=== PATIENT | female | born 1970 | race Caucasian/White ===

== ENCOUNTER → 2016-07-05 | Outpatient (REF) | payer OTHER | LOC: M SFHCWAGY 11:22 | PROVIDERS: ATTEND Nurse Practitioner Family | DX: N93.9 Abnormal uterine and vaginal bleeding, unspecified (principal); N84.0 Polyp of corpus uteri ==

== ENCOUNTER → 2016-07-19 | Day surgery (SDC) | payer OTHER ==
[~2016-07-19] VITALS: Ht 165.1 cm; Wt 88.9 kg
[~2016-07-19] MED LIST: BUPIVACAINE HCL 0.25% 30 ML VIAL As Ordered ONE; BUPIVACAINE HCL 0.25% 30 ML VIAL XX ONE; FLON1SPR; GLYCOPYRROLATE INJ 0.2 MG/ML 2 ML VIAL As Ordered ONE; KETOROLAC 60 MG/2 ML VIAL (J1885) As Ordered ONE; LIDOCAINE 2% INJ 100 MG/5 ML SDV (FOR ANES.) As Ordered ONE; LORA10TA2 PO; LR 1,000 ML IV SCH; MIDAZOLAM INJ 2 MG/2 ML VIAL (J2250) As Ordered ONE; NEOSTIGMINE 1MG/ML 5 ML SYRINGE (J2710) As Ordered ONE; ONDANSETRON 4MG/2ML VIAL (J2405) As Ordered ONE; ONDANSETRON 4MG/2ML VIAL (J2405) IV PRN; PERCOCET 5MG/325MG TAB PO PRN; PROPOFOL 200 MG/20 ML VIAL As Ordered ONE; ROCURONIUM BROMIDE 50 MG/5 ML VIAL As Ordered ONE; STOO100C PO; VITA500046 PO; dexameTHASONE 4 MG/ML 1ML VIAL (J1100) As Ordered ONE; fentaNYL 100 MCG/2 ML INJECTION (J3010) As Ordered ONE
[2016-07-19] MEDS: fentaNYL 100 MCG/2 ML INJECTION (J3010) IV PRN ×4 (11:09→11:24)
[2016-07-19 12:15] VITALS: BP 110/62
--- NOTE | 2016-07-19 23:51 | RO ---
DATE OF PROCEDURE: 07/19/2016 PREOPERATIVE DIAGNOSIS: Ventral incisional hernia. POSTOPERATIVE DIAGNOSIS: Ventral incisional hernia. PROCEDURE PERFORMED: Laparoscopic repair of ventral incisional hernia with Parietex mesh. The mesh utilized was reference number [id number] . SURGEON: Dr. Jose Pike TIRE DESIGN ENGINEER: JENNIFER Frazier ANESTHESIA: General. INDICATIONS FOR PROCEDURE: The patient is a 45-year-old woman who had undergone repair of an umbilical hernia 1-2 years ago. She recently noticed a recurrence of her hernia. She is now for repair of her ventral incisional hernia. DESCRIPTION OF PROCEDURE: The patient was placed under general anesthesia. The patient's abdomen was prepped and draped in a sterile fashion. 0.25% Marcaine was infiltrated at each of the trocar sites. A short incision was made in the lateral abdomen at the level of the umbilicus. A Veress needle was inserted and after positive hanging drop test, the abdomen was insufflated with carbon dioxide gas. A 5 mm Visiport was placed over the scope, and this was advanced through the abdominal wall without difficulty. Initial examination showed some adhesions of the omentum to the anterior abdominal wall beneath the umbilicus and in the area surrounding her previous hernia repair. A second 5 mm trocar was placed in the right upper quadrant. Hook cautery was used to dissect the adhesions from the anterior abdominal wall. Two fascial defects were identified and some omentum was reduced from within these defects. Hemostasis was ensured with the cautery. At this point, the abdomen was deflated and a roughly 4 cm incision was made on the right lateral aspect of the umbilicus through her old scar. The incision was deepened to the fascia. The patient was found to have two hernia defects. The larger one was approximately 2 cm and located beneath the umbilicus. A second smaller defect approximately a centimeter in size was found slightly to the right of the midline. The fascial edges were cleared of overlying fibrofatty tissue at both sites. A 9 cm Parietex patch, round, was then selected. A 0 Ethibond suture was placed in the midpoint of the larger fascial defect to approximate the defect and also catch a very small bite of the center of the patch. The patch was placed into the abdomen and the suture tied down. Additional sutures were then placed in both fascial defects to close them. The abdomen was then reinflated with carbon dioxide. Inspection showed that the mesh was nicely positioned over the defects. A SecureStrap tacking device was then used to tack the mesh securely to the anterior abdominal wall. Care was taken to tack down the periphery of the mesh with additional tacks within the more central portions. A total of 25 tacks were utilized. There was no bleeding noted. The patient's abdomen was then deflated and the two trocars were removed. The umbilical skin was tacked down to the fascia with a #3-0 Vicryl. Subcutaneous tissues were closed with #3-0 Vicryl and the skin edges in all three wounds were approximated with subcuticular sutures of #5-0 Vicryl. Steri-Strips were applied. I would note that 0.25% Marcaine was infiltrated around the midline incision as well. Sterile dressings were applied. The patient tolerated the procedure well. She was awakened in the operating room, extubated and moved to the recovery room in stable condition.
== END | disposition home or self-care (01) ==
LOC: M SDC 07:40
PROVIDERS: ATTEND Surgery
DX: K43.2 Incisional hernia without obstruction or gangrene (principal); K21.9 Gastro-esophageal reflux disease without esophagitis; G47.33 Obstructive sleep apnea (adult) (pediatric); R06.83 Snoring; J45.909 Unspecified asthma, uncomplicated; F17.290 Nicotine dependence, other tobacco product, uncomplicated; Z79.899 Other long term (current) drug therapy; Z91.040 Latex allergy status; Z98.51 Tubal ligation status
CPT/HCPCS: 49654; 88302; C1781; J1100; J1885; J2250; J2405; J2710; J3010

== ENCOUNTER → 2016-07-24 | Outpatient (REF) | payer OTHER ==
[~2016-07-24] MED LIST changes: -BUPIVACAINE HCL 0.25% 30 ML VIAL As Ordered ONE; -BUPIVACAINE HCL 0.25% 30 ML VIAL XX ONE; -GLYCOPYRROLATE INJ 0.2 MG/ML 2 ML VIAL As Ordered ONE; -KETOROLAC 60 MG/2 ML VIAL (J1885) As Ordered ONE; -LIDOCAINE 2% INJ 100 MG/5 ML SDV (FOR ANES.) As Ordered ONE; -LR 1,000 ML IV SCH; -MIDAZOLAM INJ 2 MG/2 ML VIAL (J2250) As Ordered ONE; -NEOSTIGMINE 1MG/ML 5 ML SYRINGE (J2710) As Ordered ONE; -ONDANSETRON 4MG/2ML VIAL (J2405) As Ordered ONE; -ONDANSETRON 4MG/2ML VIAL (J2405) IV PRN; -PERCOCET 5MG/325MG TAB PO PRN; -PROPOFOL 200 MG/20 ML VIAL As Ordered ONE; -ROCURONIUM BROMIDE 50 MG/5 ML VIAL As Ordered ONE; -dexameTHASONE 4 MG/ML 1ML VIAL (J1100) As Ordered ONE; -fentaNYL 100 MCG/2 ML INJECTION (J3010) As Ordered ONE
[2016-07-24 21:25] LABS: BASO # 0.2 K/mm3 (0.0-0.2); BASO % 1.3 % (0.0-1.0); EOS # 0.2 K/mm3 (0.0-0.50); LARGE UNSTAINED CELL # 0.2 K/mm3 (0.0-0.4); LARGE UNSTAINED CELL % 1.7 % (0.0-4.0); LYMPH # 2.9 K/mm3 (1.5-4.5); LYMPH % 23.4 % (24.0-44.0); MEAN CORPUSCULAR HEMOGLOBIN 31.6 pg (27.0-33.0); MEAN CORPUSCULAR HGB CONC 32.7 g/dl (32.0-36.5); MEAN CORPUSCULAR VOLUME 96.7 fl (80.0-96.0); MONO # 0.5 K/mm3 (0.0-0.8); MONO % 4.7 % (0.0-5.0); NEUTROPHILS # 7.7 K/mm3 (1.8-7.7); NEUTROPHILS % 66.8 % (36.0-66.0); PLATELET COUNT, AUTOMATED 220 k/mm3 (150-450); RED CELL DISTRIBUTION WIDTH 13.5 % (11.5-14.5); WHITE BLOOD COUNT 11.4 K/mm3 (4.0-10.0)
[2016-07-24 21:50] LABS: ERYTHROCYTE SEDIMENTATION RATE 41 mm/hr (0-20)
== END ==
LOC: M SFHCADAM 11:54
PROVIDERS: ATTEND Physician Assistant Medical
DX: M25.512 Pain in left shoulder (principal); M25.562 Pain in left knee; M25.532 Pain in left wrist

== ENCOUNTER → 2016-07-30 | Outpatient (CLI) | payer OTHER ==
--- NOTE | 2016-07-30 18:39 | REP ---
AP LATERAL LEFT KNEE: 07/30/2016. CLINICAL HISTORY: Left knee pain. No prior study. FINDINGS: No prior study. Two-views show spurs, tibial spines, medial greater than lateral joint margins, and patellofemoral margin. There is a spur at the insertion of the quadriceps tendon on the upper pole of patella. There is no suprapatellar effusion, fracture, loose body, or osteochondral defect. No evidence of avulsion or focal bone lesion. IMPRESSION: 1. Mild tricompartment osteoarthritis without joint effusion, fracture, loose body, osteochondral defect, or other acute finding. Signed by Gene Arenas MD 07/31/2016 10:59 A
== END ==
LOC: M ADAMS 14:59
PROVIDERS: ATTEND Physician Assistant Medical
DX: M17.32 Unilateral post-traumatic osteoarthritis, left knee (principal)

== ENCOUNTER → 2016-08-24 | Outpatient (REF) | payer OTHER ==
[2016-08-24 13:00] LABS: BASO % 0.2 % (0.0-1.0); EOS # 0.2 K/mm3 (0.0-0.50); EOS % 3.1 % (0.0-3.0); LARGE UNSTAINED CELL # 0.2 K/mm3 (0.0-0.4); LARGE UNSTAINED CELL % 2.2 % (0.0-4.0); LYMPH # 1.9 K/mm3 (1.5-4.5); MEAN CORPUSCULAR HEMOGLOBIN 31.6 pg (27.0-33.0); MEAN CORPUSCULAR HGB CONC 33.6 g/dl (32.0-36.5); MEAN CORPUSCULAR VOLUME 94.2 fl (80.0-96.0); MONO # 0.7 K/mm3 (0.0-0.8); MONO % 8.2 % (0.0-5.0); NEUTROPHILS # 5.1 K/mm3 (1.8-7.7); NEUTROPHILS % 64.2 % (36.0-66.0); PLATELET COUNT, AUTOMATED 202 k/mm3 (150-450); RED CELL DISTRIBUTION WIDTH 12.8 % (11.5-14.5); WHITE BLOOD COUNT 7.9 K/mm3 (4.0-10.0)
[2016-08-24 13:16] LABS: ALBUMIN 3.4 GM/DL (3.2-5.2); ALBUMIN/GLOBULIN RATIO 0.97 (1.00-1.93); ALKALINE PHOSPHATASE 72 U/L (45-117); ALT/SGPT 25 U/L (12-78); ANION GAP 6 MEQ/L (8-16); AST/SGOT 26 U/L (15-37); BILIRUBIN,TOTAL 0.3 MG/DL (0.2-1.0); BLOOD UREA NITROGEN 10 MG/DL (7-18); CALCIUM LEVEL 8.5 MG/DL (8.5-10.1); CARBON DIOXIDE LEVEL 28 MEQ/L (21-32); CHLORIDE LEVEL 110 MEQ/L (98-107); CHOLESTEROL LEVEL 148 MG/DL (<200); CREATININE FOR GFR 0.76 MG/DL (0.55-1.02); GLOMERULAR FILTRATION RATE > 60.0 (>58); GLUCOSE, FASTING 97 MG/DL (70-105); POTASSIUM SERUM 4.6 MEQ/L (3.5-5.1); SODIUM LEVEL 144 MEQ/L (136-145); TOTAL PROTEIN 6.9 GM/DL (6.4-8.2); TRIGLYCERIDES LEVEL 139 MG/DL (<150)
== END ==
LOC: M SFHCADAM 07:56
PROVIDERS: ATTEND Physician Assistant Medical
DX: K21.9 Gastro-esophageal reflux disease without esophagitis (principal); E66.09 Other obesity due to excess calories; E55.9 Vitamin D deficiency, unspecified

== ENCOUNTER 2016-10-22 06:12 | Day surgery (SDC) | payer OTHER ==
[~2016-10-22] VITALS: Ht 165.1 cm; Wt 88.9 kg
[~2016-10-22 06:12] MED LIST changes: +LORT1TAB2 PO; +OMEP40CA2 PO
[2016-10-22] MEDS ORDERED: LR 1,000 ML IV SCH ×3 (06:30→11:30)
[2016-10-22 06:45] LABS: MEAN CORPUSCULAR HEMOGLOBIN 33.5 pg (27.0-33.0); MEAN CORPUSCULAR HGB CONC 35.5 g/dl (32.0-36.5); MEAN CORPUSCULAR VOLUME 94.4 fl (80.0-96.0); RED CELL DISTRIBUTION WIDTH 13.4 % (11.5-14.5); WHITE BLOOD COUNT 12.3 K/mm3 (4.0-10.0)
[2016-10-22] MEDS ORDERED: CLAR10CA3 PO (06:48)
[2016-10-22] MEDS ORDERED: PROPOFOL 200 MG/20 ML VIAL As Ordered ONE (07:11)
[2016-10-22] MEDS ORDERED: ONDANSETRON 4MG/2ML VIAL (J2405) As Ordered ONE (07:11)
[2016-10-22] MEDS ORDERED: LIDOCAINE 2% INJ 100 MG/5 ML SDV (FOR ANES.) As Ordered ONE (07:12)
[2016-10-22] MEDS ORDERED: fentaNYL 100 MCG/2 ML INJECTION (J3010) As Ordered ONE ×3 (07:12→11:12)
[2016-10-22] MEDS ORDERED: ROCURONIUM BROMIDE 50 MG/5 ML VIAL As Ordered ONE ×2 (07:12→08:12)
[2016-10-22] MEDS ORDERED: MIDAZOLAM INJ 2 MG/2 ML VIAL (J2250) As Ordered ONE (07:12)
[2016-10-22] MEDS ORDERED: METHYLENE BLUE 0.5% (5MG/ML) 10 ML AMP (PROVAYBLUE)(Q9968 PER 1MG) As Ordered ONE (07:17)
[2016-10-22] MEDS ORDERED: BUPIVACAINE HCL 0.25% 30 ML VIAL As Ordered ONE (07:17)
[2016-10-22] MEDS ORDERED: SEVOFLURANE INHAL SOLN 250 ML BTL As Ordered ONE (07:19)
[2016-10-22] MEDS ORDERED: dexameTHASONE 4 MG/ML 1ML VIAL (J1100) As Ordered ONE (07:53)
[2016-10-22] MEDS ORDERED: ePHEDrine SULFATE 25 MG/5 ML(5MG/ML) SYRINGE As Ordered ONE (07:53)
[2016-10-22] MEDS ORDERED: DOCUSATE SODIUM 100 MG CAP PO SCH (09:00)
[2016-10-22] MEDS ORDERED: HYDROmorphone HCL 2 MG/ML 1ML VIAL (J1170) As Ordered ONE (09:21)
[2016-10-22] MEDS ORDERED: NEOSTIGMINE 1MG/ML 5 ML SYRINGE (J2710) As Ordered ONE (10:15)
[2016-10-22] MEDS ORDERED: GLYCOPYRROLATE INJ 0.2 MG/ML 2 ML VIAL As Ordered ONE (10:16)
[2016-10-22] MEDS ORDERED: PERC5TAB6 PO (10:57)
[2016-10-22] MEDS ORDERED: PERCOCET 5MG/325MG TAB PO PRN ×3 (11:30)
[2016-10-22] MEDS ORDERED: ONDANSETRON 4MG/2ML VIAL (J2405) IV PRN ×2 (11:30)
[2016-10-22] MEDS ORDERED: MORPHINE 4 MG/ML 1ML SYRINGE IV PRN (11:30)
[2016-10-22] MEDS ORDERED: HYDROmorphone HCL 1 MG/ML SYRINGE (J1170) IV PRN (11:30)
[2016-10-22] MEDS ORDERED: LIDOCAINE 2% JELLY 30 ML TOP PRN (11:30)
[2016-10-22] MEDS ORDERED: KETOROLAC 30 MG/ML VIAL (J1885) IV PRN (11:30)
[2016-10-22] MEDS ORDERED: fentaNYL 100 MCG/2 ML INJECTION (J3010) IV PRN (11:30)
[2016-10-22 12:15] VITALS: BP 98/50
[2016-10-22 12:45] VITALS: BP 103/56
[2016-10-22 13:15] VITALS: BP 133/75
[2016-10-22 14:15] VITALS: BP 130/66
[2016-10-22 15:15] VITALS: BP 134/66
[2016-10-22] MEDS ORDERED: IBUP80TA PO (16:11)
[2016-10-22 16:15] VITALS: BP 125/58
[2016-10-22] MEDS ORDERED: LIDO2JELLY TOP (16:24)
--- NOTE | 2016-10-22 17:01 | RO ---
DATE OF PROCEDURE: 10/22/2016 PREPROCEDURE DIAGNOSIS: Menorrhagia, genital condyloma. POSTPROCEDURE DIAGNOSIS: Menorrhagia, genital condyloma. PROCEDURE: Robotic-assisted laparoscopic hysterectomy, cystoscopy, lysis of adhesions and excision of genital condyloma. SURGEON: Dr. Arya Drake [employer]WYER: ANESTHESIA: General endotracheal. ESTIMATED BLOOD LOSS: 200 mL. URINE OUTPUT: 700 mL. FINDINGS: Dense omental adhesions to an umbilical mesh from prior surgery. Normal uterus, fallopian tubes and ovaries. 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 DESCRIPTION OF PROCEDURE: The patient was taken to the operating room where general endotracheal anesthesia was induced. She was prepped and draped in a sterile fashion in the dorsal lithotomy position. Bowles catheter was placed and VCare uterine manipulator was placed. A supraumbilical incision was made with a scalpel. A Veress needle was placed through this incision. Intraabdominal location of the Veress needle was assessed with the use of a saline-filled syringe. Pneumoperitoneum was created. The Veress needle was removed. An 11 mm trocar was placed through this incision. Upon visualization, there was extensive omental adhesions, which limited visualization of the pelvis. Two 8 mm lateral suprapubic ports were placed under direct visualization. A 5 mm central suprapubic port was placed. A Harmonic scalpel was used to coagulate and incise omental adhesions while a camera was placed through the lateral port. Eventually all adhesions were taken down surgically. The patient was placed in steep Trendelenburg position. The da [place]pe surgical robot was docked to the ports. Using bipolar PK dissector and monopolar Endo Jennifer, the utero-ovarian ligaments, fallopian tubes and round ligaments were coagulated and incised. The anterior, posterior leaves of the broad ligament were , bladder flap was created. The uterine vessels were coagulated and incised. Monopolar Endo Jennifer were used to create a colpotomy at the level of VCare cup and this was extended circumferentially around the upper vagina. Specimen, including the uterus and cervix was removed. The vaginal cuff was closed with a #1 V-Loc in a running fashion. The pelvis was copiously irrigated. Good hemostasis was noted. The patient received methylene blue dye intravenously. Cystoscopy was performed using a 70-degree cystoscope. Bilateral ureteral jets were identified. There was no injury of the bladder. The cystoscope was removed. Jesica Reece, Nurse Practitioner, assisted with all parts of the procedure from the insertion of the ports to manipulation of the uterus and subsequent removal of the uterine specimen through the vagina. She assisted with closure of the umbilical ports as well. The ports were removed. The skin was closed with #4-0 Monocryl subcuticular sutures. Dermabond was placed over the incisions. Attention was turned to the perineum. The area was reprepped with Betadine. The extensive area was injected with a total of 15 mL of 0.25% Marcaine. Scalpel and pickups were used to excise dense condyloma acuminatum. After excising warts, the skin was closed with #4-0 Vicryl in a running fashion. Several areas were excised. The area in the direct perianal area could not be excised due to the extensive nature and inability to close that area. Sponge, needle and instrument counts were correct. The patient was extubated and went to the recovery room in stable condition.
== END 2016-10-22 16:50 | disposition home or self-care (01) ==
LOC: M SDC 06:12 → M PED 12:18 → M SDC 16:50
PROVIDERS: ATTEND Specialist
DX: N92.0 Excessive and frequent menstruation with regular cycle (principal); A63.0 Anogenital (venereal) warts; K21.9 Gastro-esophageal reflux disease without esophagitis; M17.12 Unilateral primary osteoarthritis, left knee; J45.909 Unspecified asthma, uncomplicated; R06.83 Snoring; G47.33 Obstructive sleep apnea (adult) (pediatric); F17.210 Nicotine dependence, cigarettes, uncomplicated; Z91.040 Latex allergy status; Z79.899 Other long term (current) drug therapy; Z98.51 Tubal ligation status

== ENCOUNTER → 2017-05-21 | Outpatient (REF) | payer OTHER ==
[~2017-05-21] MED LIST changes: +CLAR10CA3 PO; +IBUP80TA PO; +LIDO2JELLY TOP; +PERC5TAB12 PO
[2017-05-21 13:08] LABS: ALBUMIN 3.7 GM/DL (3.2-5.2); ALBUMIN/GLOBULIN RATIO 1.03 (1.00-1.93); ALKALINE PHOSPHATASE 72 U/L (45-117); ALT/SGPT 25 U/L (12-78); ANION GAP 9 MEQ/L (8-16); AST/SGOT 20 U/L (7-37); BILIRUBIN,TOTAL 0.6 MG/DL (0.2-1.0); BLOOD UREA NITROGEN 9 MG/DL (7-18); CARBON DIOXIDE LEVEL 25 MEQ/L (21-32); CHLORIDE LEVEL 108 MEQ/L (98-107); CHOLESTEROL LEVEL 226 MG/DL (<200); CREATININE FOR GFR 0.72 MG/DL (0.55-1.02); GLOMERULAR FILTRATION RATE > 60.0 (>58); GLUCOSE, FASTING 99 MG/DL (70-105); POTASSIUM SERUM 4.2 MEQ/L (3.5-5.1); SODIUM LEVEL 142 MEQ/L (136-145); TOTAL PROTEIN 7.3 GM/DL (6.4-8.2); TRIGLYCERIDES LEVEL 153 MG/DL (<150)
[2017-05-21 13:13] LABS: BASO # 0.1 10^3/uL (0.0-0.2); BASO % 0.5 % (0.0-1.0); EOS # 0.2 10^3/uL (0.0-0.50); IMMATURE GRANULOCYTE % 0.3 % (0-0); LYMPH # 2.7 10^3/uL (1.5-4.5); LYMPH % 28.1 % (24.0-44.0); MEAN CORPUSCULAR HEMOGLOBIN 31.4 pg (27.0-33.0); MEAN CORPUSCULAR HGB CONC 33.7 g/dl (32.0-36.5); MEAN CORPUSCULAR VOLUME 93.2 fl (80.0-96.0); MONO # 0.5 10^3/uL (0.0-0.8); MONO % 5.7 % (0.0-5.0); NEUTROPHILS % 63.4 % (36.0-66.0); PLATELET COUNT, AUTOMATED 231 10^3/uL (150-450); RED CELL DISTRIBUTION WIDTH 12.5 % (11.5-14.5); WHITE BLOOD COUNT 9.4 10^3/uL (4.0-10.0)
== END ==
LOC: M SFHCADAM 07:54
PROVIDERS: ATTEND Physician Assistant Medical
DX: K21.9 Gastro-esophageal reflux disease without esophagitis (principal); E66.09 Other obesity due to excess calories; E55.9 Vitamin D deficiency, unspecified

== ENCOUNTER → 2017-06-11 | Outpatient (REF) | payer OTHER | LOC: M WUC 08:20 | PROVIDERS: ATTEND Physician Assistant Medical | DX: J02.9 Acute pharyngitis, unspecified (principal) ==

== ENCOUNTER → 2017-06-26 | Outpatient (CLI) | payer OTHER | LOC: M WHC 08:47 | DX: Z12.31 Encounter for screening mammogram for malignant neoplasm of breast (principal) | CPT/HCPCS: 77067 ==

== ENCOUNTER → 2017-11-01 | Outpatient (CLI) | payer OTHER | LOC: M ADAMS 10:38 | DX: R49.0 Dysphonia (principal); J44.9 Chronic obstructive pulmonary disease, unspecified; J30.89 Other allergic rhinitis | CPT/HCPCS: 71046 ==

== ENCOUNTER → 2018-03-10 | Outpatient (CLI) | payer OTHER | LOC: M CARPUL 08:17 | DX: R94.31 Abnormal electrocardiogram [ECG] [EKG] (principal) | CPT/HCPCS: 93306 ==

== ENCOUNTER → 2018-03-20 | Outpatient (CLI) | payer OTHER | LOC: M ADAMS 14:40 | DX: J44.1 Chronic obstructive pulmonary disease with (acute) exacerbation (principal) | CPT/HCPCS: 71046 ==

== ENCOUNTER 2018-04-24 13:46 | Emergency (ER) | payer OTHER ==
[2018-04-24] MEDS: KETOROLAC 30 MG/ML VIAL (J1885) IV (14:27)
[2018-04-24 14:44] LABS: KETONE, URINE AUTO RFX NEGATIVE (NEGATIVE); LEUKOCYTE ESTERASE UR AUTO RFX NEGATIVE (NEGATIVE); MUCUS, URINE RFX SMALL (NEGATIVE); NITRITE, URINE AUTO RFX NEGATIVE (NEGATIVE); RBC, URINE AUTO RFX 1 /HPF (0-3); SPECIFIC GRAVITY UR AUTO RFX 1.008 (1.002-1.035); SQUAM EPITHELIAL CELL UR AURFX 3 /HPF (0-6); WBC, URINE AUTO RFX 0 /HPF (0-3)
[2018-04-24 14:55] LABS: BASO # 0.1 10^3/uL (0.0-0.2); BASO % 0.5 % (0.0-1.0); EOS # 0.1 10^3/uL (0.0-0.50); EOS % 1.2 % (0.0-3.0); HEMATOCRIT 41.9 % (36.0-47.0); HEMOGLOBIN 14.3 g/dl (12.0-15.5); IMMATURE GRANULOCYTE % 0.3 % (0-3.0); MEAN CORPUSCULAR HEMOGLOBIN 31.6 pg (27.0-33.0); MEAN CORPUSCULAR HGB CONC 34.1 g/dl (32.0-36.5); MEAN CORPUSCULAR VOLUME 92.5 fl (80.0-96.0); MONO # 0.7 10^3/uL (0.0-0.8); MONO % 6.8 % (0.0-5.0); NEUTROPHILS # 6.4 10^3/uL (1.8-7.7); NEUTROPHILS % 62.2 % (36.0-66.0); PLATELET COUNT, AUTOMATED 210 10^3/uL (150-450); RED BLOOD COUNT 4.53 10^6/uL (4.00-5.40); RED CELL DISTRIBUTION WIDTH 13.2 % (11.5-14.5); WHITE BLOOD COUNT 10.2 10^3/uL (4.0-10.0)
[2018-04-24 14:57] LABS: ALBUMIN 3.5 GM/DL (3.2-5.2); ALBUMIN/GLOBULIN RATIO 0.92 (1.00-1.93); ALKALINE PHOSPHATASE 82 U/L (45-117); ALT/SGPT 24 U/L (12-78); ANION GAP 9 MEQ/L (8-16); AST/SGOT 23 U/L (7-37); BILIRUBIN,DIRECT < 0.1 MG/DL (0.0-0.2); BILIRUBIN,TOTAL 0.3 MG/DL (0.2-1.0); BLOOD UREA NITROGEN 10 MG/DL (7-18); CALCIUM LEVEL 8.8 MG/DL (8.5-10.1); CARBON DIOXIDE LEVEL 24 MEQ/L (21-32); CHLORIDE LEVEL 110 MEQ/L (98-107); CREATININE FOR GFR 0.89 MG/DL (0.55-1.30); GLOMERULAR FILTRATION RATE > 60.0 (>58); GLUCOSE, FASTING 85 MG/DL (70-100); LIPASE 113 U/L (73-393); POTASSIUM SERUM 3.9 MEQ/L (3.5-5.1); SODIUM LEVEL 143 MEQ/L (136-145); TOTAL PROTEIN 7.3 GM/DL (6.4-8.2)
== END 2018-04-24 16:05 | disposition home or self-care (01) ==
LOC: M ED 13:46
DX: K42.9 Umbilical hernia without obstruction or gangrene (principal); K21.9 Gastro-esophageal reflux disease without esophagitis
CPT/HCPCS: J1885

== ENCOUNTER 2018-06-03 07:53 | Day surgery (SDC) | payer OTHER ==
[2018-06-03] MEDS: LR 1,000 ML IV (08:59)
[2018-06-03] MEDS ORDERED: ALBUTEROL SULFATE 2.5 MG/0.5 ML INH NEB SOLN As Ordered (09:19)
[2018-06-03] MEDS: ALBUTEROL SULFATE 2.5 MG/0.5 ML INH NEB SOLN INH (09:29)
[2018-06-03] MEDS ORDERED: PROPOFOL 200 MG/20 ML VIAL As Ordered (09:58)
[2018-06-03] MEDS ORDERED: LIDOCAINE 2% INJ 100 MG/5 ML SYRINGE As Ordered (09:58)
[2018-06-03] MEDS ORDERED: ROCURONIUM BROMIDE 50 MG/5 ML VIAL As Ordered ×2 (09:58→12:17)
[2018-06-03] MEDS ORDERED: fentaNYL 100 MCG/2 ML INJECTION (J3010) As Ordered ×2 (09:59→12:39)
[2018-06-03] MEDS ORDERED: MIDAZOLAM INJ 2 MG/2 ML VIAL (J2250) As Ordered (09:59)
[2018-06-03] MEDS: BUPIVACAINE HCL 0.25% 30 ML VIAL As Ordered (11:45)
[2018-06-03] MEDS ORDERED: ePHEDrine SULFATE 25 MG/5 ML(5MG/ML) SYRINGE As Ordered (11:52)
[2018-06-03] MEDS ORDERED: dexameTHASONE 4 MG/ML 1ML VIAL (J1100) As Ordered (12:24)
[2018-06-03] MEDS: BUPIVACAINE LIPOSOME/PF 1.3% 20ML VIAL (13.3MG/ML)(EXPAREL)(C9290 PER1MG) As Ordered (12:43)
[2018-06-03] MEDS ORDERED: ONDANSETRON 4MG/2ML VIAL (J2405) As Ordered ×2 (12:48→13:27)
[2018-06-03] MEDS ORDERED: SUGAMMADEX SODIUM 500 MG/5 ML VIAL (BRIDION) As Ordered (12:54)
[2018-06-03] MEDS ORDERED: KETOROLAC 60 MG/2 ML VIAL (J1885) As Ordered (12:55)
[2018-06-03] MEDS ORDERED: PERCOCET 5MG/325MG TAB As Ordered (13:27)
[2018-06-03] MEDS: ONDANSETRON 4MG/2ML VIAL (J2405) IV (13:30)
[2018-06-03] MEDS: PERCOCET 5MG/325MG TAB PO ×2 (13:30→13:58)
[2018-06-03] MEDS ORDERED: LR 1,000 ML IV (13:30)
[2018-06-03] MEDS ORDERED: ACETAMINOPHEN TAB 650MG DOSE (2X325MG) PO (13:30)
[2018-06-03] MEDS ORDERED: IBUPROFEN 600 MG TAB PO (13:30)
[2018-06-03] MEDS ORDERED: fentaNYL 100 MCG/2 ML INJECTION (J3010) IV (13:30)
[2018-06-03] MEDS ORDERED: NORCO, ANEXSIA 5/325MG TABLET (HYDROcodone/ACETAMINOPHEN) PO (13:45)
== END 2018-06-03 14:39 | disposition home or self-care (01) ==
LOC: M SDC 07:53
DX: K43.2 Incisional hernia without obstruction or gangrene (principal); K21.9 Gastro-esophageal reflux disease without esophagitis; F41.9 Anxiety disorder, unspecified; G47.30 Sleep apnea, unspecified; J45.909 Unspecified asthma, uncomplicated; F17.210 Nicotine dependence, cigarettes, uncomplicated; Z79.899 Other long term (current) drug therapy
CPT/HCPCS: 49654

== ENCOUNTER → 2019-03-20 | Outpatient (REF) | payer OTHER ==
[~2019-03-20] MED LIST changes: +HYDR-3715 PO; +LORA-243 PO; -LORA10TA2 PO; +MACR100C43 PO; +MM S100C PO; -STOO100C PO; +VENTAER IN
[2019-03-24 00:14] LABS: MUMPS VIRUS IgG ANTIBODY <9.0 AU/mL (Immune >10.9); RUBEOLA IgG ANTIBODY <13.5 AU/mL (Immune >16.4)
== END ==
LOC: M SFHCADAM 14:35
PROVIDERS: ATTEND Physician Assistant Medical
DX: Z11.59 Encounter for screening for other viral diseases (principal)

== ENCOUNTER → 2019-03-23 | Outpatient (CLI) | payer OTHER ==
--- NOTE | 2019-03-23 13:29 | REP ---
Chest x-ray: Two views. History: Positive PPD. Comparison chest x-ray: March 20, 2018. Findings: The lungs are well inflated and clear. The pleural angles are sharp. Heart size is normal. Pulmonary vasculature is not increased. No significant bony abnormality is seen. No change from comparison study. Impression: No active disease. Electronically Signed by Eric García MD 03/23/2019 02:27 P
== END ==
LOC: M ADAMS 09:25
PROVIDERS: ATTEND Physician Assistant Medical
DX: R76.11 Nonspecific reaction to tuberculin skin test without active tuberculosis (principal)

== ENCOUNTER → 2019-03-23 | Outpatient (REF) | payer OTHER | LOC: M SFHCADAM 09:23 | PROVIDERS: ATTEND Physician Assistant Medical | DX: R76.11 Nonspecific reaction to tuberculin skin test without active tuberculosis (principal) ==

== ENCOUNTER → 2019-04-30 | Outpatient (CLI) | payer OTHER ==
[~2019-04-30] MED LIST changes: -OMEP40CA2 PO; +OMEP40CA97 PO
[2019-04-30 17:01] LABS: HEMOGLOBIN 14.2 g/dl (12.0-15.5); MEAN CORPUSCULAR HEMOGLOBIN 31.9 pg (27.0-33.0); MEAN CORPUSCULAR VOLUME 96.6 fl (80.0-96.0); PLATELET COUNT, AUTOMATED 234 10^3/uL (150-450); RED BLOOD COUNT 4.45 10^6/uL (4.00-5.40)
[2019-04-30 17:02] LABS: WHITE BLOOD COUNT 15.4 10^3/uL (4.0-10.0)
[2019-04-30 18:07] LABS: ATYPICAL LYMPH 2 % (0-5); BASOPHILS 3 % (0-1); EOSINOPHILS 2 % (0-3); LYMPHOCYTES 37 % (16-44); MONOCYTES 4 % (0-5); NEUTROPHILS 52 % (28-66); PLATELET ESTIMATE NORMAL (NORMAL)
== END ==
LOC: M LABDRWAD 13:34
PROVIDERS: ATTEND Physician Assistant
DX: J20.9 Acute bronchitis, unspecified (principal)

== ENCOUNTER → 2019-04-30 | Outpatient (CLI) | payer OTHER ==
--- NOTE | 2019-04-30 16:31 | REP ---
Two-view chest: 04/30/2019. Indication: Dyspnea. Comparison: 03/23/2019. Findings: The lungs are clear. There is no pleural effusion or pneumothorax. The cardiomediastinal silhouette is unremarkable. Impression: Clear lungs. Electronically Signed by Morris Escobar DO 04/30/2019 04:22 P
== END ==
LOC: M ADAMS 13:30
PROVIDERS: ATTEND Physician Assistant
DX: J20.8 Acute bronchitis due to other specified organisms (principal)

== ENCOUNTER → 2019-07-29 | Outpatient (REF) | payer OTHER ==
[2019-07-29 17:36] LABS: BASO % 0.3 % (0.0-1.0); EOS # 0.2 10^3/uL (0.0-0.5); EOS % 1.7 % (0.0-3.0); HEMATOCRIT 44.4 % (36.0-47.0); HEMOGLOBIN 14.2 g/dl (12.0-15.5); LYMPH # 3.5 10^3/uL (1.5-5.0); LYMPH % 31.9 % (24.0-44.0); MEAN CORPUSCULAR HEMOGLOBIN 31.1 pg (27.0-33.0); MEAN CORPUSCULAR VOLUME 97.4 fl (80.0-96.0); MONO # 0.6 10^3/uL (0.0-0.8); MONO % 5.4 % (0.0-5.0); NEUTROPHILS # 6.7 10^3/uL (1.5-8.5); NEUTROPHILS % 60.4 % (36.0-66.0); PLATELET COUNT, AUTOMATED 171 10^3/uL (150-450); RED BLOOD COUNT 4.56 10^6/uL (4.00-5.40)
[2019-07-29 18:17] LABS: ALBUMIN 3.7 GM/DL (3.2-5.2); ALT/SGPT 21 U/L (12-78); BILIRUBIN,TOTAL 0.8 MG/DL (0.2-1.0); BLOOD UREA NITROGEN 13 MG/DL (7-18); CALCIUM LEVEL 8.9 MG/DL (8.5-10.1); CARBON DIOXIDE LEVEL 26 MEQ/L (21-32); CHLORIDE LEVEL 108 MEQ/L (98-107); CREATININE FOR GFR 0.76 MG/DL (0.55-1.30); GLOMERULAR FILTRATION RATE > 60.0 (>58); GLUCOSE, FASTING 86 MG/DL (70-100); LIPASE 87 U/L (73-393); POTASSIUM SERUM 4.1 MEQ/L (3.5-5.1); SODIUM LEVEL 140 MEQ/L (136-145); TOTAL PROTEIN 6.9 GM/DL (6.4-8.2)
== END ==
LOC: M LABDRWAD 16:16
PROVIDERS: ATTEND Surgery
DX: R10.84 Generalized abdominal pain (principal)

== ENCOUNTER → 2019-10-12 | Outpatient (CLI) | payer OTHER ==
--- NOTE | 2019-10-13 05:51 | REP ---
Clinical: Periumbilical pain. Technique: Real time smith scale ultrasound examination using high frequency transducer. Findings: A small right periumbilical fat-containing hernia is identified with the peritoneal defect measuring up to 11 mm on Valsalva. No associated bowel herniation noted. Impression: Small fat containing right periumbilical hernia suggested. Electronically Signed by Bryson Singleton MD 10/13/2019 05:42 A
== END ==
LOC: M RAD 14:54
PROVIDERS: ATTEND Surgery
DX: R10.33 Periumbilical pain (principal); K42.9 Umbilical hernia without obstruction or gangrene

== ENCOUNTER → 2019-10-20 | Outpatient (CLI) | payer OTHER ==
--- NOTE | 2019-10-20 20:01 | REP ---
Clinical: Periumbilical pain. Technique: Axial noncontrast images from the lung bases to the pubic symphysis with coronal and sagittal re-formations. Comparison: 04/24/2018. Findings: Liver, spleen, pancreas, gallbladder, bilateral adrenal glands and kidneys are normal for noncontrast evaluation. The enteric system is without obstruction or acute inflammatory process. Normal terminal ileum, cecum and appendix identified in the right lower quadrant. Few scattered colonic diverticula noted without acute diverticulitis. Pelvis demonstrates normal bladder and evidence of prior hysterectomy. No ascites. No free air. No adenopathy. No acute hernia. The small right supraumbilical hernia identified on prior examination is no longer evident. Abdominal aorta without aneurysm. Musculoskeletal structures intact and without acute focal osseous abnormality. Lung bases are clear. Visualized heart and pericardium normal. Impression: 1. No acute abdominopelvic pathology appreciated. 2. Previously identified small right supraumbilical ventral hernia is no longer evident. Electronically Signed by Bryson Singleton MD 10/20/2019 07:53 P
== END ==
LOC: M RAD 08:46
PROVIDERS: ATTEND Surgery
DX: R10.33 Periumbilical pain (principal)

== ENCOUNTER → 2020-11-15 | Outpatient (CLI) | payer OTHER ==
--- NOTE | 2020-11-15 10:53 | REP ---
INDICATION: RT LEG PAIN SWELLING ? DVT COMPARISON: None. TECHNIQUE: Capps scale and color Doppler evaluation right lower extremity using linear high frequency transducer. FINDINGS: Ultrasound examination of the right lower extremity deep venous structures from the common femoral vein to the popliteal vein demonstrates normal compressibility flow and wave patterns in response to respiration and augmentation. There is no evidence for deep venous thrombosis. IMPRESSION: No evidence for deep venous thrombosis. <Electronically signed by Bryson Singleton > 11/15/20 [id number]
== END ==
LOC: M RAD 10:28
PROVIDERS: ATTEND Physician Assistant Medical
DX: R60.1 Generalized edema (principal)

== ENCOUNTER → 2020-12-05 | Outpatient (CLI) | payer OTHER ==
--- NOTE | 2020-12-06 10:11 | ECHO ---
ECHOCARDIOGRAM DATE OF PROCEDURE: 12/05/2020 Age: Gender: Height: 165 cm Weight: 100 kg REFERRING PHYSICIAN: CAMMIE Salmeron. INDICATION: Generalized edema. MEASUREMENTS: IVS 0.7 cm LV 5.1 cm LVPW 0.9 cm LA 4.0 cm Aorta 3.2 cm Left atrium volume index 34 ml/m2 Mitral E wave velocity 119 A wave 100 E prime septal 8.1 E prime lateral 10.0 FINDINGS: This study is of fair technical quality corresponding to patient's body habitus. Underlying sinus rhythm. Left ventricle is normal size and systolic function with estimated LVEF 60 to 65%. Right ventricle also appears to have normal size and systolic function. Left atrium is mildly enlarged. Right atrium appears normal. Aortic, mitral, and tricuspid valves appear normal. Pulmonic valve was not well seen. Inferior vena cava is normal size and appropriately collapses with inspiration. Aortic root, aortic arch, and visualized segment of abdominal aorta appear normal. Doppler interrogation reveals competent aortic valve. Trace mitral and trace tricuspid insufficiency. Quality of TR jet was not sufficient to adequately estimate pulmonary artery pressure. Mitral inflow pattern and tissue Doppler imaging of mitral annulus revealed normal diastolic function of left ventricle. CONCLUSIONS: 1. Study is of fair technical quality, underlying sinus rhythm. 2. Normal LV size with preserve LV systolic and diastolic function. 3. No significant valvular disease. 4. Likely normal central venous pressure. 5. Unable to estimate pulmonary artery pressure. COMMENT: The results of echocardiogram make it less likely that peripheral edema is secondary to congestive heart failure.
== END ==
LOC: M CARPUL 13:39
PROVIDERS: ATTEND Physician Assistant Medical
DX: R60.1 Generalized edema (principal)

== ENCOUNTER → 2021-03-07 | Outpatient (REF) | payer OTHER ==
[~2021-03-07] MED LIST changes: +OMEP40CA4 PO; -OMEP40CA97 PO
[2021-03-07 12:59] LABS: BASO % 0.4 % (0.0-1.0); EOS # 0.2 10^3/uL (0.0-0.5); EOS % 2.2 % (0.0-3.0); HEMATOCRIT 46.1 % (36.0-47.0); HEMOGLOBIN 15.1 g/dl (12.0-15.5); LYMPH # 2.8 10^3/uL (1.5-5.0); LYMPH % 29.6 % (24.0-44.0); MEAN CORPUSCULAR HEMOGLOBIN 31.2 pg (27.0-33.0); MEAN CORPUSCULAR HGB CONC 32.8 g/dl (32.0-36.5); MEAN CORPUSCULAR VOLUME 95.2 fl (80.0-96.0); MONO # 0.6 10^3/uL (0.0-0.8); MONO % 6.1 % (2.0-8.0); NEUTROPHILS # 5.9 10^3/uL (1.5-8.5); NEUTROPHILS % 61.3 % (36.0-66.0); PLATELET COUNT, AUTOMATED 214 10^3/uL (150-450); RED BLOOD COUNT 4.84 10^6/uL (4.00-5.40); WHITE BLOOD COUNT 9.6 10^3/uL (4.0-10.0)
[2021-03-07 14:01] LABS: ALBUMIN 3.5 GM/DL (3.2-5.2); ALT/SGPT 23 U/L (12-78); BILIRUBIN,TOTAL 0.4 MG/DL (0.2-1.0); BLOOD UREA NITROGEN 10 MG/DL (7-18); CALCIUM LEVEL 8.9 MG/DL (8.5-10.1); CARBON DIOXIDE LEVEL 27 MEQ/L (21-32); CHLORIDE LEVEL 108 MEQ/L (98-107); CHOLESTEROL LEVEL 258 MG/DL (<200); CHOLESTEROL RISK RATIO 7.371 (<5); CREATININE FOR GFR 0.75 MG/DL (0.55-1.30); GLOMERULAR FILTRATION RATE > 60.0 (>58); GLUCOSE, FASTING 94 MG/DL (70-100); HDL CHOLESTEROL 35 MG/DL (>40); LDL CHOLESTEROL 177 MG/DL (<100); NON-HDL-C 223 MG/DL; POTASSIUM SERUM 4.5 MEQ/L (3.5-5.1); SODIUM LEVEL 141 MEQ/L (136-145); TOTAL 25(OH) VITAMIN D 21.2 NG/ML (30.0-100.0); TOTAL PROTEIN 6.7 GM/DL (6.4-8.2); TRIGLYCERIDES LEVEL 231 MG/DL (<150)
[2021-03-07 15:57] LABS: HEMOGLOBIN A1c 5.6 %
== END ==
LOC: M SFHCADAM 08:15
PROVIDERS: ATTEND Physician Assistant Medical
DX: E66.01 Morbid (severe) obesity due to excess calories (principal); F17.210 Nicotine dependence, cigarettes, uncomplicated; K21.9 Gastro-esophageal reflux disease without esophagitis; I87.2 Venous insufficiency (chronic) (peripheral)

== ENCOUNTER 2021-11-04 12:25 | Emergency (ER) | payer OTHER ==
[~2021-11-04] VITALS: Ht 162.6 cm; Wt 104.1 kg
[2021-11-04] MEDS ORDERED: ATOR40TA75 (12:35)
[2021-11-04] MEDS ORDERED: SERT50TA29 (12:35)
[2021-11-04] MEDS ORDERED: TRAM50TA2 (12:35)
[2021-11-04 15:08] LABS: BASO % 0.4 % (0.0-1.0); EOS # 0.3 10^3/uL (0.0-0.5); EOS % 2.3 % (0.0-3.0); HEMATOCRIT 42.6 % (36.0-47.0); LYMPH # 3.3 10^3/uL (1.5-5.0); MEAN CORPUSCULAR HEMOGLOBIN 31.3 pg (27.0-33.0); MEAN CORPUSCULAR HGB CONC 32.9 g/dl (32.0-36.5); MEAN CORPUSCULAR VOLUME 95.1 fl (80.0-96.0); MONO # 0.5 10^3/uL (0.0-0.8); MONO % 4.2 % (2.0-8.0); NEUTROPHILS # 6.9 10^3/uL (1.5-8.5); NEUTROPHILS % 62.6 % (36.0-66.0); PLATELET COUNT, AUTOMATED 287 10^3/uL (150-450); RED BLOOD COUNT 4.48 10^6/uL (4.00-5.40)
[2021-11-04 15:30] LABS: ERYTHROCYTE SEDIMENTATION RATE 60 mm/hr (0-30)
[2021-11-04] MEDS ORDERED: CEPH500T PO (16:03)
[2021-11-04 16:09] VITALS: BP 118/56
== END 2021-11-04 16:39 | disposition home or self-care (01) ==
LOC: M ED 12:25
DX: G89.18 Other acute postprocedural pain (principal); E78.5 Hyperlipidemia, unspecified; K21.9 Gastro-esophageal reflux disease without esophagitis; J45.909 Unspecified asthma, uncomplicated; F17.200 Nicotine dependence, unspecified, uncomplicated; Z79.51 Long term (current) use of inhaled steroids; Z79.899 Other long term (current) drug therapy; Z91.040 Latex allergy status; Z98.890 Other specified postprocedural states

== ENCOUNTER → 2021-12-06 | Outpatient (REF) | payer OTHER ==
[~2021-12-06] MED LIST changes: +ATOR40TA75; +CEPH500T PO; +SERT50TA29; +TRAM50TA2
[2021-12-06 14:00] LABS: ALBUMIN 3.2 GM/DL (3.2-5.2); ALT/SGPT 19 U/L (12-78); BILIRUBIN,TOTAL 0.4 MG/DL (0.2-1.0); BLOOD UREA NITROGEN 10 MG/DL (7-18); CALCIUM LEVEL 8.4 MG/DL (8.5-10.1); CARBON DIOXIDE LEVEL 26 MEQ/L (21-32); CHLORIDE LEVEL 111 MEQ/L (98-107); CHOLESTEROL LEVEL 164 MG/DL (<200); CHOLESTEROL RISK RATIO 4.432 (<5); CREATININE FOR GFR 0.82 MG/DL (0.55-1.30); GLOMERULAR FILTRATION RATE > 60.0 (>51); GLUCOSE, FASTING 92 MG/DL (70-100); HDL CHOLESTEROL 37 MG/DL (>40); LDL CHOLESTEROL 101 MG/DL (<100); NON-HDL-C 127 MG/DL; POTASSIUM SERUM 4.2 MEQ/L (3.5-5.1); SODIUM LEVEL 142 MEQ/L (136-145); TOTAL PROTEIN 6.5 GM/DL (6.4-8.2); TRIGLYCERIDES LEVEL 130 MG/DL (<150)
== END ==
LOC: M SFHCADAM 07:46
PROVIDERS: ATTEND Physician Assistant Medical
DX: E78.2 Mixed hyperlipidemia (principal)

== ENCOUNTER → 2022-01-23 | Outpatient (CLI) | payer OTHER | LOC: M RAD 10:08 | PROVIDERS: ATTEND Physician Assistant | DX: M17.12 Unilateral primary osteoarthritis, left knee (principal); M79.662 Pain in left lower leg ==

== ENCOUNTER → 2022-03-07 | Outpatient (REF) | payer OTHER ==
[2022-03-07 12:59] LABS: APPEARANCE, URINE MANUAL HAZY (CLEAR); COLOR, URINE MANUAL LT YELLOW (YELLOW)
[2022-03-07 13:01] LABS: BILIRUBIN, URINE MANUAL NEGATIVE (NEGATIVE); BLOOD URINE MANUAL NEGATIVE (NEGATIVE); GLUCOSE, URINE (UA) MANUAL NEGATIVE (NEGATIVE); KETONE, URINE MANUAL NEGATIVE (NEGATIVE); LEUKOCYTE ESTERASE, URINE MAN NEGATIVE (NEGATIVE); NITRITE, URINE MANUAL NEGATIVE (NEGATIVE); PROTEIN, URINE MANUAL NEGATIVE (NEGATIVE); SPECIFIC GRAVITY,URINE MANUAL 1.005 (1.002-1.035); UROBILINOGEN, URINE MANUAL NORMAL (NORMAL)
[2022-03-07 13:09] LABS: BACTERIA, URINE MOD AMOUNT; HYALINE CAST, URINE NONE SEEN /lpf (0-1); RBC, URINE 0-1 /hpf (0-3); SQUAMOUS EPITHELIAL CELL URINE MOD AMOUNT /hpf (SMALL AMT); WBC, URINE 0-1 /hpf (0-3)
== END ==
LOC: M SFHCADAM 12:43
PROVIDERS: ATTEND Physician Assistant Medical
DX: N95.0 Postmenopausal bleeding (principal)

== ENCOUNTER → 2022-03-19 | Outpatient (CLI) | payer OTHER | LOC: M PLAIMG 12:01 | PROVIDERS: ATTEND Physician Assistant | DX: R05.1 Acute cough (principal); R06.2 Wheezing; R91.8 Other nonspecific abnormal finding of lung field ==

== ENCOUNTER → 2023-03-20 | Outpatient (REF) | payer OTHER ==
[2023-03-20 17:58] LABS: BASO % 0.3 % (0.0-1.0); EOS # 0.3 10^3/uL (0.0-0.5); EOS % 2.2 % (0.0-3.0); HEMATOCRIT 43.5 % (36.0-47.0); HEMOGLOBIN 14.5 g/dl (12.0-15.5); LYMPH # 3.8 10^3/uL (1.5-5.0); LYMPH % 29.6 % (24.0-44.0); MEAN CORPUSCULAR HEMOGLOBIN 31.3 pg (27.0-33.0); MEAN CORPUSCULAR HGB CONC 33.3 g/dl (32.0-36.5); MEAN CORPUSCULAR VOLUME 93.8 fl (80.0-96.0); MONO # 1.1 10^3/uL (0.0-0.8); MONO % 8.4 % (2.0-8.0); NEUTROPHILS # 7.6 10^3/uL (1.5-8.5); NEUTROPHILS % 59.2 % (36.0-66.0); PLATELET COUNT, AUTOMATED 200 10^3/uL (150-450); RED BLOOD COUNT 4.64 10^6/uL (4.00-5.40); WHITE BLOOD COUNT 12.8 10^3/uL (4.0-10.0)
[2023-03-20 18:23] LABS: ALBUMIN 3.6 G/DL (3.2-5.2); ALKALINE PHOSPHATASE 101 U/L (46-116); ALT/SGPT 15 U/L (7.0-40); AST/SGOT 15 U/L (<34); BILIRUBIN,TOTAL 0.4 MG/DL (0.3-1.2); BLOOD UREA NITROGEN 16 MG/DL (9-23); CARBON DIOXIDE LEVEL 27 MMOL/L (20-31); CHLORIDE LEVEL 107 MMOL/L (98-107); CHOLESTEROL LEVEL 239 MG/DL (<200); CHOLESTEROL RISK RATIO 5.55 (<5); CREATININE FOR GFR 0.77 MG/DL (0.55-1.30); GLOMERULAR FILTRATION RATE > 60.0 (>51); GLUCOSE, FASTING 85 MG/DL (60-100); LDL CHOLESTEROL 152.8 MG/DL (<100); POTASSIUM SERUM 4.2 MMOL/L (3.5-5.1); SODIUM LEVEL 141 MMOL/L (136-145); THYROID STIMULATING HORMONE 1.419 uIU/ML (0.55-4.78); TOTAL 25(OH) VITAMIN D 26.9 NG/ML (20.0-100.0); TOTAL PROTEIN 6.6 G/DL (5.7-8.2); TRIGLYCERIDES LEVEL 216 MG/DL (<150)
== END ==
LOC: M SFHCADAM 15:36
PROVIDERS: ATTEND Physician Assistant Medical
DX: E78.2 Mixed hyperlipidemia (principal); E55.9 Vitamin D deficiency, unspecified; G47.33 Obstructive sleep apnea (adult) (pediatric); E66.01 Morbid (severe) obesity due to excess calories; F33.1 Major depressive disorder, recurrent, moderate

== ENCOUNTER 2024-04-03 10:47 | Day surgery (SDC) | payer OTHER ==
[~2024-04-03] VITALS: Ht 162.6 cm; Wt 94.3 kg
[~2024-04-03 10:47] MED LIST changes: +FURO20TA2 PO; +NS 250 ML IV ONE; +VITA200032 PO
[2024-04-03] MEDS ORDERED: propofoL 200 MG/20 ML VIAL As Ordered ONE (11:58)
[2024-04-03 12:33] VITALS: TEMP 97.5
[2024-04-03 12:50] VITALS: BP 110/69; O2SAT 97
== END 2024-04-03 12:58 | disposition home or self-care (01) ==
LOC: M OPP 10:47
PROVIDERS: ATTEND Surgery
DX: Z12.11 Encounter for screening for malignant neoplasm of colon (principal); Z12.12 Encounter for screening for malignant neoplasm of rectum; K21.9 Gastro-esophageal reflux disease without esophagitis; G47.30 Sleep apnea, unspecified; Z90.710 Acquired absence of both cervix and uterus; Z79.899 Other long term (current) drug therapy; F17.210 Nicotine dependence, cigarettes, uncomplicated; R01.1 Cardiac murmur, unspecified

== ENCOUNTER → 2024-06-26 | Outpatient (CLI) | payer OTHER ==
[~2024-06-26] MED LIST changes: -NS 250 ML IV ONE
[2024-06-26 10:55] LABS: HEMATOCRIT 40.4 % (36.0-47.0); HEMOGLOBIN 13.4 g/dl (12.0-15.5); MEAN CORPUSCULAR HEMOGLOBIN 30.6 pg (27.0-33.0); MEAN CORPUSCULAR HGB CONC 33.2 g/dl (32.0-36.5); MEAN CORPUSCULAR VOLUME 92.2 fl (80.0-96.0); PLATELET COUNT, AUTOMATED 201 10^3/uL (150-450); RED BLOOD COUNT 4.38 10^6/uL (4.00-5.40); WHITE BLOOD COUNT 7.8 10^3/uL (4.0-10.0)
[2024-06-26 10:57] LABS: APPEARANCE, URINE CLEAR (CLEAR); BACTERIA, URINE AUTO 1+ (NEGATIVE); BILIRUBIN, URINE AUTO NEGATIVE (NEGATIVE); BLOOD, URINE BLOOD 1+ (NEGATIVE); COLOR, URINE YELLOW (YELLOW); GLUCOSE, URINE (UA) AUTO NEGATIVE (NEGATIVE); KETONE, URINE AUTO NEGATIVE (NEGATIVE); LEUKOCYTE ESTERASE, URINE AUTO NEGATIVE (NEGATIVE); NITRITE, URINE AUTO NEGATIVE (NEGATIVE); PROTEIN, URINE AUTO NEGATIVE (NEGATIVE); RBC, URINE AUTO 1 /HPF (0-3); SPECIFIC GRAVITY URINE AUTO 1.006 (1.002-1.035); SQUAMOUS EPITHELIAL CELL UR AU 2 /HPF (0-6); WBC, URINE AUTO 0 /HPF (0-3)
[2024-06-26 11:08] LABS: INR 1.02; PROTHROMBIN TIME 13.7 SECONDS (12.5-14.5)
[2024-06-26 11:22] LABS: ALBUMIN 3.5 G/DL (3.2-5.2); ALKALINE PHOSPHATASE 88 U/L (35-104); ALT/SGPT 17 U/L (7.0-40); AST/SGOT 19 U/L (<34); BILIRUBIN,TOTAL 0.6 MG/DL (0.3-1.2); BLOOD UREA NITROGEN 9 MG/DL (9-23); CALCIUM LEVEL 9.1 MG/DL (8.5-10.1); CARBON DIOXIDE LEVEL 27 MMOL/L (20-31); CHLORIDE LEVEL 108 MMOL/L (98-107); CREATININE FOR GFR 0.63 MG/DL (0.55-1.30); GLOMERULAR FILTRATION RATE > 60.0 (>51); GLUCOSE, FASTING 91 MG/DL (60-100); POTASSIUM SERUM 4.2 MMOL/L (3.5-5.1); SODIUM LEVEL 143 MMOL/L (136-145); TOTAL PROTEIN 7.2 G/DL (5.7-8.2)
== END ==
LOC: M LAB 09:14
PROVIDERS: ATTEND Orthopaedic Surgery
DX: Z01.818 Encounter for other preprocedural examination (principal); M17.11 Unilateral primary osteoarthritis, right knee

== ENCOUNTER → 2024-07-01 | Outpatient (REF) | payer OTHER | LOC: M SFHCADAM 17:01 | PROVIDERS: ATTEND Physician Assistant Medical | DX: B00.9 Herpesviral infection, unspecified (principal) ==

== ENCOUNTER → 2024-08-05 | Outpatient (REF) | payer OTHER ==
[2024-08-05 17:35] LABS: APPEARANCE, URINE HAZY (CLEAR); BACTERIA, URINE AUTO NEGATIVE (NEGATIVE); BILIRUBIN, URINE AUTO NEGATIVE (NEGATIVE); BLOOD, URINE BLOOD 2+ (NEGATIVE); COLOR, URINE YELLOW (YELLOW); GLUCOSE, URINE (UA) AUTO NEGATIVE (NEGATIVE); KETONE, URINE AUTO NEGATIVE (NEGATIVE); LEUKOCYTE ESTERASE, URINE AUTO TRACE (NEGATIVE); MUCUS, URINE SMALL (NEGATIVE); NITRITE, URINE AUTO NEGATIVE (NEGATIVE); PROTEIN, URINE AUTO NEGATIVE (NEGATIVE); RBC, URINE AUTO 2 /HPF (0-3); SPECIFIC GRAVITY URINE AUTO 1.015 (1.002-1.035); SQUAMOUS EPITHELIAL CELL UR AU 13 /HPF (0-6); WBC, URINE AUTO 1 /HPF (0-3)
== END ==
LOC: M SFHCADAM 17:03
PROVIDERS: ATTEND Physician Assistant Medical
DX: R30.0 Dysuria (principal)